=== PATIENT | female | born 1955 | race Caucasian/White ===

== ENCOUNTER → 2021-07-15 | Day surgery (SDC) | payer MEDICARE ==
[~2021-07-15] MED LIST: ASACOL 400 MG400 M1 PO; BAYER CHEWABLE81 MG PO; BYSTOLIC 5 MG5 M1 PO; BYSTOLIC10 MG PO; FAMOTIDINE 20 M20 MG PO; FISH OIL 1,001000 M3 PO; HYDROCHLOROTHIA25 M1 PO; HYDROCODON-ACE1 EA11 PO; LIALDA1.2 GM PO; LIPITOR 20 MG T20 M1 PO; LISINOPRIL10 MG PO; PRINIVIL40 MG PO; PROTONIX40 M2 PO; SINGULAIR 10 MG10 MG PO; VITAMIN B12-FO1 EAC1 PO; VITAMIN D3250 MC2 PO
--- NOTE | ~2021-07-15 | OP ---
[facility] [address] [place] [address] OPERATIVE REPORT Name: RADHA RONDON Room: [facility]#: [id number] Admission: 07/15/21 Attend Phys: Dillan Roger Discharge: Date of : 57 Report #: [id number] THIS REPORT FOR: cc: Stephanie Nieto MD, Emily G. MD Patterson,Dillan Mahmood MD ~ DATE OF SURGERY: 07/15/2021 PREOPERATIVE DIAGNOSIS: Chronic cholecystitis. POSTOPERATIVE DIAGNOSIS: Chronic cholecystitis. OPERATION: Laparoscopic cholecystectomy. SURGEON: Dillan Roger MD ANESTHESIA: General. ESTIMATED BLOOD LOSS: Minimal. SPECIMENS: Gallbladder. DESCRIPTION OF PROCEDURE: After informed consent was obtained, the patient was brought to the operating room and placed supine. SCDs were placed and working, preoperative antibiotics were administered, general anesthesia was induced. The abdomen was prepped and draped in the usual sterile fashion. A 10 mm incision was made below the umbilicus. Fascia was incised and a trocar was placed. Pneumoperitoneum was established. Three right upper quadrant 5 mm ports were placed. Gallbladder was grasped and retracted cephalad. Infundibulum was grasped and retracted laterally. I dissected out the cystic duct and cystic artery. The cystic plate was fully identified. Cystic duct was clipped and ligated leaving a clip and a PDS Endoloop on the remaining duct. Gallbladder was then taken off the liver bed with electrocautery. It was placed into an Endopouch and removed. Fascia was then closed with a [id number] 0 Vicryl. Skin was closed with 4-0 Monocryl. Incisions were dressed with Steri-Strips. COMPLICATIONS: None. DISPOSITION: The patient was taken to recovery in satisfactory condition. By: [id number] Roger MD /nt
[2021-07-15 06:40] LABS: HEMOGLOBIN 13.9 gm/dL (12.0-15.0); MCH 28.4 pg (26.0-34.0); MCHC 33.1 g/dL (28.0-37.0); MCV 85.9 fL (80.0-100.0); MPV 8.4 fl. (7.2-11.1); RBC 4.89 mil/uL (4.20-5.00); RDW-CV 13.3 % (10.5-14.5); WBC 6.5 thou/uL (4.0-11.0)
[2021-07-15 06:50] LABS: CALCIUM 9.1 mg/dL (8.5-10.1); CREATININE 1.1 mg/dL (0.6-1.3); POTASSIUM 3.3 mmol/L (3.5-5.1)
[2021-07-15 06:54] LABS: ALBUMIN 3.8 g/dL (3.4-5.0); TOTAL BILIRUBIN 0.7 mg/dL (<0.1-1.0); TOTAL PROTEIN 7.3 g/dL (6.4-8.2)
--- NOTE | 2021-07-15 11:51 | EKG ---
[place] [address] ELECTROCARDIOGRAM REPORT Name: RADHA RONDON Room: [facility]#: [id number] Admission: 07/15/21 Attend Phys: Dillan Davis Discharge: Date of : 57 Date of Service: 07/15/21 0639 Report #: [id number] THIS REPORT FOR: //name// [facility] Test Date: 2021-07-15 Test Time: 06:39:59 Pat Name: RADHA RONDON Department: Room: Gender: F [employer]: JASON : 1955 Requested By: Dillan Roger Order Number: [id number] Rehan MD: Navid Thakur Measurements Intervals [place] Rate: 79 P: 70 VA: 147 QRS: -17 QRSD: 128 T: 115 QT: 422 QTc: 484 Interpretive Statements Sinus rhythm Left bundle branch block Compared to ECG 04/19/2006 11:56:17 Left bundle-branch block now present Electronically Signed On 07-15-2021 11:51:23 CATH LAB RADIOLOGICAL TECHNOLOGIST by Navid Thakur [email or web address] <ELECTRONICALLY SIGNED> By: Navid Thakur MD, FACC 07/15/21 1151 0639 0639 Navid Thakur MD, FAC /EPI
== END | disposition home or self-care (01) ==
LOC: M.SUR 06:00
PROVIDERS: ATTEND Surgery
DX: K81.1 Chronic cholecystitis (principal); R10.11 Right upper quadrant pain; I10 Essential (primary) hypertension; Z98.890 Other specified postprocedural states; Z79.899 Other long term (current) drug therapy; Z20.822 Contact with and (suspected) exposure to COVID-19; Z88.0 Allergy status to penicillin; Z88.8 Allergy status to other drugs, medicaments and biological substances